=== PATIENT | female | born 2000 | race Caucasian/White ===

== ENCOUNTER → 2023-05-07 13:40 | Outpatient (CLI) | payer OTHER, SELFPAY ==
[2023-05-07 14:22] LABS: Influenza A - CEPHEID Flu A NEGATIVE (NEGATIVE); Influenza B - CEPHEID Flu B NEGATIVE (NEGATIVE); Respiratory Syncytial Virus Negative (Negative)
[2023-05-07 14:33] LABS: COVID-19 CEPHEID 4-PLEX PCR Negative (Negative)
== END ==
PROVIDERS: Visit Provider Nurse Practitioner Family
DX: H57.9 Unspecified disorder of eye and adnexa (principal); J39.2 Other diseases of pharynx
CPT/HCPCS: 0241U

== ENCOUNTER → 2024-12-03 08:26 | Outpatient (CLI) | payer BC, SELFPAY ==
[2024-12-03 09:22] LABS: Influenza A - CEPHEID Flu A NEGATIVE (NEGATIVE); Influenza B - CEPHEID Flu B NEGATIVE (NEGATIVE); Respiratory Syncytial Virus Negative (Negative)
[2024-12-03 09:31] LABS: COVID-19 CEPHEID 4-PLEX PCR Negative (Negative)
== END ==
PROVIDERS: Referring Provider Student in an Organized Health Care Education/Training Program; Visit Provider Student in an Organized Health Care Education/Training Program
DX: J02.9 Acute pharyngitis, unspecified (principal); J34.89 Other specified disorders of nose and nasal sinuses
CPT/HCPCS: 0241U; 87070